=== PATIENT | male | born 1945 | race Caucasian/White ===

== ENCOUNTER 2018-01-28 06:45 | Day surgery (SDC) | payer OTHER ==
--- OUTSIDE RECORDS SUMMARY | 2018-01-28 06:48 | XMS REPORT | Clinical Summary ---
:1945 Author Organization [facility] Address [address] [place] [address] Phone Care Team Providers Name Role Phone Unavailable Primary Care Provider Unavailable Allergies Active Allergy Reactions Severity Noted Date Comments Iodine And Iodide Containing 11/13/2013 Topical -- Stops Breathing, Products unsure if allergic to contrast Shellfish Containing 11/13/2013 Stops Breathing Products Current Medications Prescription Sig. Disp. Refills Start Date End Date Status atorvastatin Take 40 mg by mouth Active (LIPITOR) 40 MG daily. tablet aspirin 81 mg Tab Take by mouth daily. Active amLODIPine-benazepril Take 1 capsule by mouth Active (LOTREL 5-20) 5-20 mg daily. per capsule LIRAGLUTIDE (VICTOZA Inject 1.8 mg Active SUBQ) subcutaneously daily. TESTOSTERONE Inject 300 mg Active CYPIONATE intramuscularly every (DEPO-TESTOSTERONE 14 (fourteen) days. IM) levothyroxine Take 137 mcg by mouth Active (SYNTHROID, daily. LEVOTHROID) 137 MCG tablet Active Problems Not on file Social History Tobacco Use Types Packs/Day Years Used Date Former Smoker Quit: 10/22/1988 Alcohol Use Drinks/Week oz/Week Comments Yes one beer per yr Sex Assigned at Date Recorded Not on file Last Filed Vital Signs Not on file Plan of Treatment Health Maintenance Due Date Last Done Comments INFLUENZA VACCINE 07/22/2018 Results Not on fileafter 01/27/2017 Advance Directives Patient has advance directives. For more information, please contact:[facility] [place] [address] [phone]
--- OUTSIDE RECORDS SUMMARY | 2018-01-28 06:48 | XMS REPORT | Clinical Summary ---
:1945 Author Organization [facility] Address [address] [place] [address] Care Team Providers Name Role Phone Alexa Mahmood Primary Care Provider Allergies Active Allergy Reactions Severity Noted Date Comments Iodine 11/06/2016 Shellfish Derived 11/06/2016 Current Medications Prescription Sig. Disp. Refills Start Date End Date Status atorvastatin (LIPITOR) Take 20 mg by Active 20 MG tablet mouth daily. amlodipine-benazepril Take 1 capsule Active (LOTREL 5-20) 5-20 mg by mouth daily. per capsule levothyroxine Take 137 mcg by Active (SYNTHROID, LEVOXYL) mouth every 137 mcg tablet morning. amoxicillin (AMOXIL) Take 4 tablets 4 tablet 5 12/31/2017 01/07/2018 500 MG tablet po one hour prior to dental work Active Problems No known active problems Encounters Date Type Specialty Care Team Description 01/17/2018 Telephone Orthopedic Surgery Cathy Pierce LVN 12/31/2017 Telephone Orthopedic Surgery Cathy Pierce LVN after 01/27/2017 Family History Medical History Relation Name Comments Hypertension Father Cancer Mother colon Relation Name Status Comments Father Mother Alive Social History Tobacco Use Types Packs/Day Years Used Date Never Smoker Smokeless Tobacco: Current User Snuff Alcohol Use Drinks/Week oz/Week Comments No Sex Assigned at Date Recorded Not on file Last Filed Vital Signs Not on file Plan of Treatment Health Maintenance Due Date Last Done Comments COLONOSCOPY 1993 ZOSTER VACCINE 2003 PNEUMOCOCCAL POLYSACCHARIDE VACCINE AGE 65 AND OVER 2008 PNEUMOCOCCAL-13 2008 INFLUENZA VACCINE 05/22/2018 Results Not on fileafter 01/27/2017 Insurance Payer Benefit Plan / Group Subscriber ID Type Phone Address MEDICARE MEDICARE PART A AND B xxxxxxxxxx Medicare [place], [place] AETNA AETNA HMO,POS,EPO, MC/EC xxxxxxxxxx HMO Home: [id number] [phone] [place], [place] [id number]
--- OUTSIDE RECORDS SUMMARY | 2018-01-28 06:48 | XMS REPORT ---
:1945 Author [facility] Address [address] [place] [address] Dr. Garcia [address] [place] [id number] Care Team Providers Name Role Phone TEJINDER MORELOS Unavailable Unavailable Problems This patient has no known problems. Allergies, Adverse Reactions, Alerts This patient has no known allergies or adverse reactions. Medications This patient has no known medications. Results Test Description Test Time Test Comments Text Results Atomic Results Result Comments TSH 2017-01-03 21:22:00 Test Item Value Reference Range Comments THYROID STIMULATING HORMONE (BEAKER) (test vjbl=478) 0.22 uIU/mL 0.35-4.94 [id number] 21:22:00 Test Item Value Reference Range Comments T3 TOTAL (BEAKER) (test hpvj=639) 86 ng/dL 48-159 Effective 09/08/2014: Reference Range ChangeNew: 48-159 Previous: [id number] 21:17:00 Test Item Value Reference Range Comments T4 TOTAL (BEAKER) (test ying=494) 5.8 ug/dL 4.9-11.7 HEMOGLOBIN [id number] 14:14:00 Test Item Value Reference Range Comments HEMOGLOBIN A1C (BEAKER) (test phqx=247) 5.2 % 4.3-6.1 LIPID [id number] 13:18:00 Test Item Value Reference Range Comments TRIGLYCERIDES (BEAKER) (test bbsb=042) 84 mg/dL CHOLESTEROL (BEAKER) (test dwvo=940) 119 mg/dL HDL CHOLESTEROL (BEAKER) (test ulry=544) 39 mg/dL LDL CHOLESTEROL CALCULATED (BEAKER) (test 63 mg/dL toew=188) Triglyceride Reference Range: Low Risk <150 Borderline 150- 199 High Risk 200-499 Very High Risk >=500Cholesterol Reference Range: Low Risk <200 Borderline 200-239 High Risk > 240HDL Cholesterol Reference Range: Low Risk >=60 High Risk <40LDL Cholesterol Reference Range: Optimal <100 Near Optimal 100-129 Borderline 130-159 High 160-189 Very High >=190BASIC METABOLIC [id number] 13:18:00 Test Item Value Reference Range Comments SODIUM (BEAKER) (test 139 meq/L 136-145 exlm=157) POTASSIUM (BEAKER) (test 4.3 meq/L 3.5-5.1 hoge=677) CHLORIDE (BEAKER) (test 103 meq/L 98-107 dsns=476) CO2 (BEAKER) (test 26 meq/L 22-29 mxaz=758) BLOOD UREA NITROGEN 12 mg/dL 7-21 (BEAKER) (test jaiu=681) CREATININE (BEAKER) (test 1.00 mg/dL 0.57-1.25 tftr=501) GLUCOSE RANDOM (BEAKER) 136 mg/dL 70-105 (test stjm=028) CALCIUM (BEAKER) (test 9.0 mg/dL 8.4-10.2 fdmn=691) EGFR (BEAKER) (test 73 mL/min/1.73 sq m ESTIMATED GFR IS NOT eavp=7830) ACCURATE CREATININE CLEARANCE IN PREDICTING GLOMERULAR FILTRATION RATE. ESTIMATED GFR IS NOT APPLICABLE FOR DIALYSIS PATIENTS. HEPATIC FUNCTION [id number] 13:18:00 Test Item Value Reference Range Comments TOTAL PROTEIN (BEAKER) (test cxye=104) 6.8 gm/dL 6.0-8.3 ALBUMIN (BEAKER) (test nkik=2765) 4.1 g/dL 3.5-5.0 BILIRUBIN TOTAL (BEAKER) (test bozx=655) 0.9 mg/dL 0.2-1.2 BILIRUBIN DIRECT (BEAKER) (test yiqn=960) 0.3 mg/dL 0.1-0.5 ALKALINE PHOSPHATASE (BEAKER) (test kjeh=323) 77 U/L 40-150 AST (SGOT) (BEAKER) (test cbmu=237) 22 U/L 5-34 ALT (SGPT) (BEAKER) (test yukq=985) 22 U/L 6-55 B-TYPE NATRIURETIC FACTOR (BNP)2017-01-03 13:09:00 Test Item Value Reference Range Comments B-TYPE NATRIURETIC PEPTIDE (BEAKER) (test < pg/mL 0-100 liox=731) CBC W/PLT COUNT & AUTO [id number] 12:50:00 Test Item Value Reference Range Comments WHITE BLOOD CELL COUNT (BEAKER) (test amsh=052) 5.1 K/ L 4.0-10.0 RED BLOOD CELL COUNT (BEAKER) (test oful=257) 5.22 M/ L 4.20-5.80 HEMOGLOBIN (BEAKER) (test giez=196) 17.6 GM/DL 13.0-16.8 HEMATOCRIT (BEAKER) (test tcid=942) 52.4 % 40.0-50.0 MEAN CORPUSCULAR VOLUME (BEAKER) (test iobp=802) 100.0 fL 82.0-98.0 MEAN CORPUSCULAR HEMOGLOBIN (BEAKER) (test 33.7 pg 27.0-33.0 seow=879) MEAN CORPUSCULAR HEMOGLOBIN CONC (BEAKER) (test 33.6 GM/DL 32.0-36.0 jnwu=373) RED CELL DISTRIBUTION WIDTH (BEAKER) (test 13.7 % 10.3-14.2 wjhf=082) PLATELET COUNT (BEAKER) (test yjwr=767) 147 K/CU MM 150-430 MEAN PLATELET VOLUME (BEAKER) (test msqe=312) 7.4 fL 6.5-10.5 NUCLEATED RED BLOOD CELLS (BEAKER) (test 0 /100 WBC 0-0 bxuu=645) NEUTROPHILS RELATIVE PERCENT (BEAKER) (test 74 % ibzo=400) LYMPHOCYTES RELATIVE PERCENT (BEAKER) (test 17 % moqv=402) MONOCYTES RELATIVE PERCENT (BEAKER) (test 7 % wbvl=538) EOSINOPHILS RELATIVE PERCENT (BEAKER) (test 1 % ecbt=275) BASOPHILS RELATIVE PERCENT (BEAKER) (test 0 % rlvq=017) NEUTROPHILS ABSOLUTE COUNT (BEAKER) (test 3.75 K/ L 1.80-8.00 xzcn=512) LYMPHOCYTES ABSOLUTE COUNT (BEAKER) (test 0.89 K/ L 1.48-4.50 uzgl=991) MONOCYTES ABSOLUTE COUNT (BEAKER) (test 0.38 K/ L 0.00-1.30 aiym=834) EOSINOPHILS ABSOLUTE COUNT (BEAKER) (test 0.07 K/ L 0.00-0.50 dhei=499) BASOPHILS ABSOLUTE COUNT (BEAKER) (test 0.02 K/ L 0.00-0.20 hgrp=748) 0.00
[2018-01-28] MEDS ORDERED: BUPIVACAINE 0.25% PF 10 ML VIAL ONE (07:14)
[2018-01-28] MEDS ORDERED: LIDOCAINE HCL/PF 3.5% OPTH GEL ONE (07:14)
[2018-01-28] MEDS ORDERED: LIDOCAINE 2% MPF 5 ML VIAL ONE (07:14)
[2018-01-28] MEDS ORDERED: TETRACAINE HCL 0.5% 2ML OPTH ONE ×2 (07:14→07:17)
[2018-01-28] MEDS ORDERED: NA CHLORIDE 0.9% 500 ML ONE ×2 (07:19→08:06)
[2018-01-28] MEDS: CYCLOPENTOLATE 1% OPTH 2 ML ONE ×3 (07:30→07:40)
[2018-01-28] MEDS: PHENYLEPHRINE 10% OPTH 5ML ONE ×3 (07:30→07:40)
[2018-01-28] MEDS ORDERED: MIDAZOLAM HCL 2 MG/2 ML INJ ONE (08:12)
[2018-01-28] MEDS ORDERED: FENTANYL CITR 100 MCG/2 ML ONE (08:12)
[2018-01-28] MEDS ORDERED: EPINEPHRINE/PF 1 MG/ML AMP ONE (08:18)
[2018-01-28] MEDS ORDERED: NS 0.9% VIAL 10 ML ONE (08:18)
[2018-01-28] MEDS ORDERED: BALANCED SALT IRRIG PLAIN 500 ML BTL IRR ONE (08:19)
[2018-01-28] MEDS ORDERED: DUOVISC 1 KIT OPTH ONE (08:19)
[2018-01-28] MEDS ORDERED: MOXIFLOXACIN HCL 10 DROPS/ML **OR USE OPTH ONE (08:21)
[2018-01-28] MEDS ORDERED: LIDOCAINE 1% MPF 2 ML AMPULE ONE (08:21)
[2018-01-28] MEDS ORDERED: BSS OPTHALMIC SOL 15 ML BOT OPTH ONE (08:24)
--- NOTE | 2018-01-28 09:06 | P.BOP ---
Preoperative diagnosis: Nuclear sclerotic cataract OD Postoperative diagnosis: Same Primary procedure: Phacoemulsification with IOL OD Estimated blood loss: None Anesthesia: Local (Topical with anesthesia for cataract surgery) Complications: None Implants: ZCB00 +19.5 Transferred to: Other (Day surgery) Condition: Good
--- NOTE | 2018-01-28 20:13 | OP ---
Date of Procedure: 01/28/2018 Surgeon: Shea Ma MD Anesthesiologist: Yandel Watts CRNA. Preoperative Diagnosis: Nuclear sclerotic cataract, OD (right eye). Operation Performed: Phacoemulsification with intraocular lens implant, OD ( right eye). Anesthesia: Per cataract surgery. Complications: None. Description Of Procedure: In the operating room the patient was prepped and draped in the usual sterile fashion for ophthalmic surgery. A lid speculum was placed in the right eye. Two paracentesis sites were made superiorly and inferiorly in the limbal cornea. Viscoat was placed in the anterior chamber and a crescent blade was used to make a corneal groove and tunnel, and a keratome was used to enter the anterior chamber. Provisc was placed in the anterior chamber and a 360 degree capsulotomy was performed with a cystitome. The lens was hydrodissected with BSS and rotated freely. The lens was removed with a stop and chop technique. 11.31 Phaco CDE was used to remove the lens. Residual cortex was removed with the irrigation and aspiration. Provisc was placed in the capsular bag. A ZCB00 +19.5 lens was placed in the capsular bag without complications. Irrigation and aspiration were used to remove residual viscoelastic. The paracentesis sites were hydrated with BSS. The wound and paracentesis sites were inspected and found to be watertight. Vigamox 0.07 cc was placed intracamerally at the end of the procedure. The eye was irrigated with balanced salt solution. The eye was patched with a soft cotton patch and Moreira metal shield. The patient was returned to day surgery in good condition. Comments: Akten was placed in the eye in Day Surgery and irrigated out of the eye in the OR with BSS. The eyelid was prepped with Chloroxylenol 3% on the scan and then irrigated off of the lid. No iodine was used. Preservative free 1% lidocaine was placed in the anterior chamber. This was followed by 1:5000 epinephrine. Both were placed prior to Viscoat. Discharge Instructions: Mr. Guajardo is discharged to home in good condition. He is to follow up with Dr. Ma in the morning. HENOK/SABRA Voice ID: [id number] Report ID: [id number] [facility]ENTER[facility]
== END 2018-01-28 09:49 | disposition home or self-care (01) ==
LOC: OR 06:45
PROVIDERS: ATTEND Ophthalmology Retina Specialist
PROC: 08RJ3JZ Replacement of Right Lens with Synthetic Substitute, Percutaneous Approach (ICD-10-PCS; principal; 2018-01-28 08:30)
DX: H25.11 Age-related nuclear cataract, right eye (principal); H43.813 Vitreous degeneration, bilateral; H04.123 Dry eye syndrome of bilateral lacrimal glands; E11.9 Type 2 diabetes mellitus without complications; I10 Essential (primary) hypertension; I25.2 Old myocardial infarction; E78.00 Pure hypercholesterolemia, unspecified; E07.9 Disorder of thyroid, unspecified; Z79.82 Long term (current) use of aspirin; Z87.891 Personal history of nicotine dependence; Z88.3 Allergy status to other anti-infective agents; Z82.49 Family history of ischemic heart disease and other diseases of the circulatory system; Z83.3 Family history of diabetes mellitus
CPT/HCPCS: 66984; 82962; J0171; J2001; J2250; J3010